=== PATIENT | male | born 1990 | race Caucasian/White ===

== ENCOUNTER 2021-09-13 14:26 | Emergency (ER) | payer OTHER ==
[~2021-09-13] VITALS: Ht 175.3 cm; Wt 75.0 kg
[2021-09-13 14:40] VITALS: BP 107/58
[2021-09-13] MEDS ORDERED: HYDR-2155 PO (14:53)
[2021-09-13] MEDS ORDERED: PRED50TA PO (14:53)
--- NOTE | 2021-09-13 14:54 | PHYS DOC ---
Adult General Chief Complaint Chief Complaint: BACK PAIN OR INJURY HPI HPI Patient is a 31-year-old male who presents emergency department complaining of a sciatica back pain flareup on the right side. Patient reports an original injury 7 years ago while at work and has occasional flareups. Patient reports this particular sciatica back pain is not radiating down his extremities bilaterally and is only focused on the right side of his back and into the upper part of his buttocks. Patient denies numbness to his genitals or buttocks area, denies loss of bowel or bladder, denies urinary retention. Patient reports while this is not a normal type a flareup it is not abnormal for him to have sciatica pain presentation such as this. Patient denies other physical complaints or physical concerns. Is requesting a work excuse for the next 2 days. (MOIRA HOSKINS APRN) Review of Systems Review of Systems 14 body systems of review of systems have been reviewed. See HPI for pertinent positives and negative responses, otherwise all other systems are negative, nonpertinent or noncontributory. Constitutional: Negative except as outlined in HPI above. Skin: Negative except as outlined in HPI above. Eyes: Negative except as outlined in HPI above. HENT: Negative except as outlined in HPI above. Respiratory: Negative except as outlined in HPI above. Cardiovascular: Negative except as outlined in HPI above. GI: Negative except as outlined in HPI above. : Negative except as outlined in HPI above. Musculoskeletal: Negative except as outlined in HPI above. Integument: Negative except as outlined in HPI above. Neurologic: Negative except as outlined in HPI above. Endocrine: Negative except as outlined in HPI above. Lymphatic: Negative except as outlined in HPI above. Psychiatric: Negative except as outlined in HPI above. (MOIRA HOSKINS APRN) Allergies Allergies Allergies Coded Allergies Type Severity Reaction Last Updated Verified No Known Drug Allergies 09/13/21 No (MOIRA HOSKINS APRN) Physical Exam Physical Exam Constitutional: Well developed, well nourished, no acute distress, non-toxic appearance. 31-year-old male in no apparent distress. HENT: Normocephalic, atraumatic. Eyes: Conjunctiva normal, no discharge. Neck: Normal range of motion, no stridor. Cardiovascular: No cyanosis appreciated, distal cap refill less than 2 seconds. Lungs & Thorax: Patient is in no respiratory distress, no audible adventitious lung sounds appreciated. Abdomen: Nontender, no abnormalities noted. Skin: Warm, dry, no erythema, no rash. Back: No deformities appreciated, no midline spinal tenderness, no left-sided or right-sided CVA TTP. Patient does have right sided lumbar pain to palpation. Extremities: No tenderness, no cyanosis, no clubbing, ROM intact, no edema. Neurologic: Alert and oriented X 3, normal motor function, normal sensory function, no focal deficits noted. Psychologic: Affect normal, judgement normal, mood normal. (MOIRA HOSKINS APRN) EKG EKG [] (MOIRA HOSKINS APRN) Radiology/Procedures Radiology/Procedures [] (MOIRA HOSKINS APRN) Heart Score C/O Chest Pain: No Risk Factors: Risk Factors: DM, Current or recent (<one month) smoker, HTN, HLP, family history of CAD, obesity. Risk Scores: Risk Factors: DM, Current or recent (<one month) smoker, HTN, HLP, family history of CAD, obesity. (MOIRA HOSKINS APRN) Course & Med Decision Making Course & Med Decision Making Pertinent Labs and Imaging studies reviewed. (See chart for details) 31-year-old male, vital signs reviewed, presents emerged from concerning sciatica flareup. Physical presentation and examination is consistent with lumbago of the right. No saddle anesthesia, very low likelihood of spinal abscess or cauda equina syndrome. Discussed findings with patient, will give IM injection of steroid, continue to take prescribed medications at home by his primary care physician, strict follow-up with primary care for ongoing pain management. Patient is amenable to ED discharge planning. Discussed with the patient all findings and diagnostic testing as well as the need to follow-up with their primary care provider for further evaluation and treatment or return to the ED if any new or worsening symptoms. Strict return precautions were also discussed at length, the patient voiced understanding and agreement with the discharge planning. The patient was nontoxic in appearance, in no apparent distress, and hemodynamically stable at the time of disposition. (MOIRA HOSKINS APRN) Dragon Disclaimer Dragon Disclaimer This electronic medical record was generated, in whole or in part, using a voice recognition dictation system. (MOIRA HOSKINS APRN) Attending Co-Sign The patient was seen and interviewed as well as examined at the bedside. The chart was reviewed. The case was discussed. Agree with the plan of care. (NADEGE FREITAS DO) Departure Departure: Impression: Primary Impression: Lumbago Disposition: HOME / SELF CARE / HOMELESS Condition: GOOD Referrals: DAPHNE ADAMS APRN (PCP) Patient Instructions: Sciatica Additional Instructions: You were seen today in the emergency department for a low back pain flareup. You were treated today with a steroid called Depo-Medrol, I have prescribed a steroid to take over the next 5 days, I have prescribed pain medication to take as needed for acute pain. Please continue to take your NSAIDs and back pain medication as prescribed by your primary care physician. Please follow-up with your primary care physician for ongoing back pain pain management. Return to the emergency department for worsening symptoms or other concerns. I have given you a work excuse to be off for the next 2 days. Thank you for visiting our Em ergency Department. It was a pleasure taking care of you today in the emergency department and we appreciate you trusting us with your care. If any additional problems come up don't hesitate to return to visit us. Please follow up with your primary care provider so they can plan additional care if needed and know about the problem that you had. If symptoms worsen come back to the Emergency Department. Any concerning symptoms that start such as chest pain, shortness of air, weakness or numbness on one side of the body, running high fevers or any other concerning symptoms return to the ER. Scripts Hydrocodone Bit/Acetaminophen (HYDROCODONE-APAP 5-325 ) 1 Each Tablet 1 TAB PO PRN Q6HRS PRN for PAIN, #10 TAB Prov: MOIRA HOSKINS APRN 09/13/21 Prednisone (PREDNISONE) 50 Mg Tablet 1 TAB PO DAILY for back pain for 5 Days, #5 TAB 0 Refills Prov: MOIRA HOSKINS APRN 09/13/21 Problem Qualifiers Primary Impression: Lumbago Chronicity: chronic Back pain laterality: right Sciatica presence: without sciatica Qualified Codes: M54.50 - Low back pain, unspecified; G89.29 - Other chronic pain MOIRA HOSKINS APRN Sep 13, 2021 14:54 NADEGE FREITAS DO Sep 14, 2021 13:41
[2021-09-13] MEDS ORDERED: IBUPROFEN 600 MG TABLET. PO ONE (15:00)
[2021-09-13] MEDS ORDERED: ACETAMINOPHEN 500 MG TABLET PO ONE (15:00)
[2021-09-13] MEDS ORDERED: methylPREDNISolone ACETATE 80 MG/ML VIAL. IM ONE (15:00)
== END 2021-09-13 15:13 | disposition home or self-care (01) ==
LOC: EDBD 14:26 → ER 14:26
DX: M54.59 Other low back pain (principal)
CPT/HCPCS: 96372; 99283; J1040